=== PATIENT | male | born 1955 | race Caucasian/White ===

== ENCOUNTER 2022-07-15 08:05 | Outpatient (CLI) | payer OTHER, SELFPAY | END 2022-07-15 08:06 | disposition home or self-care (01) | LOC: LKVREF 08:06 | PROVIDERS: PCP Family Medicine; Visit Provider Family Medicine | DX: M25.512 Pain in left shoulder (principal); E03.9 Hypothyroidism, unspecified; I10 Essential (primary) hypertension | CPT/HCPCS: 80053; 80061; 84153; 84443 ==

== ENCOUNTER 2023-12-05 08:08 | Outpatient (CLI) | payer MEDICARE, SELFPAY | END 2023-12-05 08:09 | disposition home or self-care (01) | LOC: NFLDREF 12-18 13:01 | PROVIDERS: PCP Family Medicine; Referring Provider Family Medicine; Visit Provider Family Medicine | DX: I10 Essential (primary) hypertension (principal); E03.9 Hypothyroidism, unspecified; Z13.220 Encounter for screening for lipoid disorders; Z12.5 Encounter for screening for malignant neoplasm of prostate | CPT/HCPCS: 80048; 80061; 84443; G0103 ==

== ENCOUNTER 2023-12-20 10:53 | Outpatient (RCR) | payer MEDICARE, SELFPAY ==
--- NOTE | 2023-12-20 13:50 | PT.OPE ---
PT [facility] PT [facility] Eval Start: 12/20/23 13:26 Freq: Status: Active Protocol: Document 12/20/23 13:27 TYREE (Rec: 12/20/23 13:42 TYREE [id number]) E-signed By Dimas Correa DPT, MS Physical Therapy Outpatient Evaluation Insurance Information Recert Due Date 03/19/24 Insurance Name Medicare B,[employer] Medical Diagnosis Impingement syndrome of right shoulder; pain in right shoulder Treating Diagnosis R UE weakness and decreased endurance, decreased B (R>L) UE flexibility Subjective Subjective Pt is a 68 y.o. male who presents to PT with c/o chronic R shoulder pain and tightness of insidious origin 4-5 months ago. Believes frequent driving in his pickup truck resting his R elbow on a high center console may have led to sxs. Cortisone injection last week was extremely helpful being able to lift, reach behind his back and reach across his body without sxs. Able to do all daily activities with minimal pain but wants to learn correct exercises to avoid recurrence of sxs in the future. Denies past injuries to his R shoulder but has had L cortisone injections in the past with excellent results. 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 No issues digging a trench this week for a drainage project on his property. Denies other significant PMH. AGGR factors: lifting heavy objects, repetitive activities with R UE, sleep on R side. ALLEV factors: rest, ice. Pain Comments 0/10 Current Work Status [employer] Occupation [employer] Objective Functional Test Performed & Score Quick DASH: 16% Assessment Assessment/Impression Pt displays significant improvement in R shoulder sxs today with negative impingement testing with R RC and periscap weakness and decreased endurance found with testing. Symmetrical B shoulder AROM in all directions without pain. Cautioned pt to not overdo activities with his R UE despite decreased pain levels, resting with fatigue and increased sxs. Good response to R UE strengthening and stretching exercises with fatigue following. He would benefit continued skilled therapy to address these limitations. Primary Functional Limitations 1x per week for least 6-10 visits, decreasing visit frequency as able. Plan of Care Rehabilitation Potential Excellent Physical Therapy Goals Short-term goals to be completed in 4 weeks: 1.Pt will display improved R shoulder flex and ABR AROM > 165 deg without pain to improve tolerance to daily and personal grooming activities. 2.Pt will report improved quality of sleep waking <2x per night due to R shoulder pain for >3 consecutive days. Long-term goals to be completed in 10 weeks: 1.Pt will be independent and compliant with HEP for assisted sx management. 2.Pt will display increased R ER, IR, low and mid trap strength >4/5 to put dishes away in overhead cabinets 3. Pt will report being able to perform all daily activities without elevation in R shoulder pain. 4. Pt will report >20 point improvement in quick DASH to significantly improve ryne to daily activities. Coordination/Communication With Referral Source Treatment Plan/Direct Interventions Joint Mobilization,Manual Therapy,Therapeutic Exercises Frequency/Duration 1x per week for least 6-10 visits, decreasing visit frequency as able. Patient Will Be Discharged From Therapy Completion of LTG(s),Skills Plateau,Independent w/HEP, Independently Progressing Evaluation Billing Untimed Code Treatment Minutes 25 Complexity Moderate Certification Information Physician Comment/Change : Physician NPI Number #
== END 2024-04-18 23:59 | disposition home or self-care (01) ==
PROVIDERS: PCP Family Medicine; Visit Provider Orthopaedic Surgery
DX: M75.41 Impingement syndrome of right shoulder (principal); R29.898 Other symptoms and signs involving the musculoskeletal system; Z51.89 Encounter for other specified aftercare
CPT/HCPCS: 97110; 97162

== ENCOUNTER 2024-03-05 08:05 | Outpatient (CLI) | payer MEDICARE, SELFPAY | END 2024-03-05 08:06 | disposition home or self-care (01) | LOC: NFLDREF 03-09 13:11 | PROVIDERS: PCP Family Medicine; Referring Provider Family Medicine; Visit Provider Family Medicine | DX: E03.9 Hypothyroidism, unspecified (principal) | CPT/HCPCS: 84443 ==

== ENCOUNTER 2024-05-30 15:07 | Outpatient (CLI) | payer MEDICARE, SELFPAY | END 2024-05-30 15:08 | disposition home or self-care (01) | LOC: NFLDREF 06-01 23:48 | PROVIDERS: PCP Family Medicine; Referring Provider Family Medicine; Visit Provider Family Medicine | DX: E03.9 Hypothyroidism, unspecified (principal) | CPT/HCPCS: 84443 ==

== ENCOUNTER 2024-06-13 09:15 | Outpatient (CLI) | payer MEDICARE, SELFPAY ==
--- NOTE | 2024-06-13 09:15 | CRLHL7_ITS ---
For Patients: As a result of the Century Cures Act, medical imaging exams and procedure reports are released immediately into your electronic medical record. You may view this report before your referring provider. If you have questions, please contact your health care provider. INDICATION: Dizziness. TECHNIQUE: Sagittal T1 axial FLAIR T2 diffusion-weighted and gadolinium enhanced axial and coronal T1 images of the entire brain. High-resolution thin section axial T1, T2 and gadolinium-enhanced axial and coronal T1 weighted images centering on the internal auditory canals. FINDINGS: The ventricles and subarachnoid spaces are mildly and diffusely prominent for age due to mild volume loss. There is no evidence of acute ischemic infarction. There are no areas of diffusion restriction. There is no mass effect. There is no evidence of intracranial hemorrhage. Multiple small foci of nonenhancing FLAIR/T2 hyperintensity are scattered throughout the supratentorial white matter. These findings are nonspecific but consistent with chronic microvascular ischemia. No enhancing intra-axial or extra-axial lesion. The CP angle cisterns and internal auditory canals appear normal there is no evidence of acoustic neuroma/vestibular schwannoma there is a small developmental venous anomaly in the right cerebellar hemisphere (normal variant of venous drainage). No enhancing inner ear lesion. The orbits sella and skull base unremarkable there is some mild mucosal thickening at the base the left maxillary antrum. IMPRESSION: 1. No evidence of acoustic neuroma/vestibular schwannoma. No other lesion with attention to the central vestibular and auditory pathways. 2. Cerebral white matter signal changes consistent with mild to moderate chronic microvascular ischemia. No evidence of acute infarction or intracranial hemorrhage. 3. Incidental developmental venous anomaly in the right cerebellar hemisphere (normal variant of venous drainage). Dictated by Amarjit Simeon MD @ 06/14/2024 10:04:12 AM (Electronically Signed)
== END 2024-06-13 09:16 | disposition home or self-care (01) ==
LOC: MRI 09:16
PROVIDERS: PCP Family Medicine; Visit Provider Family Medicine
DX: R42 Dizziness and giddiness (principal); G93.9 Disorder of brain, unspecified
CPT/HCPCS: 70553; A9575